=== PATIENT | male | born 1950 | race African-American/Black ===

== ENCOUNTER 2016-11-30 08:52 | Inpatient (IN) | payer OTHER ==
[~2016-11-30] VITALS: Ht 175.3 cm; Wt 73.0 kg
[2016-11-30] MEDS ORDERED: UNOBMED (09:12)
[2016-11-30 09:18] VITALS: BP 178/105
[2016-11-30] MEDS ORDERED: Solu-MEDROL 125mg Inj IVP ONE (09:45)
[2016-11-30] MEDS ORDERED: Azithromycin 500 MG in NS 275 ML IV ONE (09:45)
[2016-11-30] MEDS: Albuterol ud Inhalation HHN SCH ×3 (09:50→10:13)
[2016-11-30] MEDS: Ipratropium 0.02% Inh Soln 2.5ml UD HHN SCH ×3 (09:50→10:13)
--- NOTE | 2016-11-30 10:02 | Emergency Room Report ---
History of Present Illness General Chief Complaint: Upper Respiratory Illness Source: Patient Present Illness HPI 66 YO M + smoker with 2-3 days productive cough, SOB, chest tightness, myalgias. Denies known history of COPD, asthma. Never been treated before. Denies history of CAD, CHF. Denies sick contacts, foreign travel. States used to be [facility] patient, now unaffiliated. Takes HTN meds, not sure the name. Allergies: Coded Allergies: No Known Allergies (Unverified , 11/30/16) Patient History Past Medical History: HTN Past Surgical History: none Pertinent Family History: none Social History: Reports: smoking Immunizations: UTD Reviewed Nursing Documentation: PMH: Agreed, PSxH: Agreed Nursing Documentation-PMH Past Medical History: No History, Except For Hx Hypertension: Yes Review of Systems All Other Systems: negative except mentioned in HPI Physical Exam Vital Signs Date Time Temp Pulse Resp B/P Pulse Ox O2 Delivery O2 Flow Rate FiO2 11/30/16 09:08 98.1 78 18 178/105 89 Room Air Sp02 EP Interpretation: reviewed, abnormal General Appearance: normal inspection, well appearing, alert, GCS 15, non-toxic , mild distress Head: normocephalic, atraumatic Eyes: bilateral eye EOMI, bilateral eye PERRL ENT: normal ENT inspection, hearing grossly normal, normal voice Neck: normal inspection, full range of motion, supple, no bony tend Respiratory: normal inspection, no retraction, no accessory muscle use, rhonchi , wheezing Cardiovascular #1: normal inspection Gastrointestinal: normal inspection, normal bowel sounds, non tender, soft, no guarding, no hernia Genitourinary: no CVA tenderness Musculoskeletal: normal inspection, back normal, normal range of motion, Gerald' s Sign negative Neurologic: normal inspection, alert, oriented x3, responsive, dairy management specialist III-XII nml as tested, motor strength/tone normal, speech normal Psychiatric: normal inspection, judgement/insight normal, mood/affect normal Skin: normal inspection, normal color, no rash Lymphatic: normal inspection Procedures Critical Care Time Critical Care Time 35 minutes CC time of 35 minutes for this 66YOM who p/w acute SOB. DDx includes COPD exacerbation, ACS, PNA, CHF, bronchitis/URI PMhx includes HTN, smoker Presents acute SOB warm, c/o intermittent 2-3days of progressive SOB Patient immediately placed on ekg monitor tech with rhytm strip and STAT EKG was obtained which showed no acute ischemia VS notable for hypoxia on RA. Afebrile Initial management indicated: CBC, CMP, troponin, BNP, CXR, nebs, steroids, empiric Abx for COPD Highly suspected: COPD exacerbation, +/- PNA Possible interventions - BIPAP, additional Abx. CC time included frequent re-exams, interpretation of labs, imaging, adjustment of Abx Critical care time of 35 minutes does not include reportable procedures. Medical Decision Making Medicare Attestation I Verena Rossi MD hereby attest that the medical record entry for date of service, 10/16/16 accurately reflects signatures/notations that I made in my capacity as MD when I treated/diagnosed the above listed Medicare beneficiary. I attest that this information is true, accurate and complete to the best of my knowledge. I understand that any falsification, omission, or concealment of material fact may subject me to administrative, civil, or criminal liability. This patient warrants hospital admission for extreme of age and has a condition that cannot be treated as outpatient. Diagnostic Impression: Primary Impression: Upper respiratory infection Qualified Codes: J06.9 - Acute upper respiratory infection, unspecified; B97.89 - Other viral agents as the cause of diseases classified elsewhere Additional Impressions: Hypoxia Wheezing NSTEMI (non-ST elevated myocardial infarction) Acute on chronic heart failure Qualified Codes: I50.9 - Heart failure, unspecified CKD (chronic kidney disease) Qualified Codes: N18.9 - Chronic kidney disease, unspecified ER Course 66 YO M with 2-3 days of URI symptoms, hypoxia on vitals, SOB. DDx includes COPD +/- PNA, CHF, CAD, URI PLAN: Cardiac, O2 monitor, labs, CXR, nebs, steroids, Empiric Azithrom likely Adm EKG Diagnostic Results Rate: normal, other - LVH Rhythm: NSR ST Segments: no acute changes ASA given to the pt in ED: No Rhythm Strip Diag. Results EP Interpretation: yes Rate: 82 Rhythm: NSR, no PVC's, no ectopy Chest X-Ray Diagnostic Results EP Interpretation: Yes Findings: no consolidation, no effusion, no pneumothorax, other - Pulm congestion Number of Views: 1 Reevaluation Time: 12:12 Last Vital Signs Date Time Temp Pulse Resp B/P Pulse Ox O2 Delivery O2 Flow Rate FiO2 11/30/16 09:19 78 18 Room Air 11/30/16 09:18 98.1 178/105 89 Status: improved Reevaluation Impression Labs: No leuks. H&H stable. Trop 0.4. BNP >[address] depression lateral leads with TWI CXR with CHF A: Acute on chronic CHF, NSTEMI, known CKD Additional records from [facility] show history of CHF, last EF 31-40%, dilated cardiomyopathy, PUD, HTN Patient was on ASA, lasix, Norvasc, Lopressor - ?compliance now Gave ASA, Plavix. Dr Osorio Cx for Cardiology/NSTEMI - recommended holding Lovenox to see previous ECG but upon request [facility] did not send previous ECG Disposition: ADMITTED INPATIENT Condition: Critical VERENA ROSSI M.D. Nov 30, 2016 10:02
[2016-11-30] MEDS ORDERED: Azithromycin Inj IV ONE (10:04)
[2016-11-30] MEDS ORDERED: NS 275 ML ONE (10:05)
[2016-11-30 10:16] LABS: BASOPHILS % (AUTO) 1.5 % (0.0-2.0); EOSINOPHILS % (AUTO) 0.9 % (0.0-3.0); LYMPHOCYTES % (AUTO) 10.7 % (20.0-45.0); MEAN CORPUSCULAR HEMOGLOBIN 32.8 PG (27.0-31.0); MEAN CORPUSCULAR HGB CONC 32.6 G/DL (32.0-36.0); MEAN CORPUSCULAR VOLUME 101 FL (80-99); MEAN PLATELET VOLUME 8.7 FL (6.5-10.1); MONOCYTES % (AUTO) 4.8 % (1.0-10.0); NEUTROPHILS % (AUTO) 82.1 % (45.0-75.0); PLATELET COUNT 220 K/UL (150-450); RED BLOOD COUNT 4.52 M/UL (4.70-6.10); RED CELL DISTRIBUTION WIDTH 12.3 % (11.6-14.8); WHITE BLOOD COUNT 7.5 K/UL (4.8-10.8)
[2016-11-30 10:28] LABS: ALANINE AMINOTRANSFERASE 21 U/L (3-41); ALBUMIN/GLOBULIN RATIO 1.3 (1.0-2.7); ANION GAP 17 (5-15); ASPARTATE AMINO TRANSFERASE 17 U/L (5-40); CARBON DIOXIDE 21 mEQ/L (20-30); CHLORIDE 97 mEQ/L (98-107); CREATININE 1.2 mg/dL (0.7-1.2); GLOMERULAR FILTRATION RATE > 60 mL/min (>60); HEMOLYSIS 14; POTASSIUM 3.9 mEQ/L (3.4-4.9); SODIUM 135 mEQ/L (135-145); TOTAL PROTEIN 7.4 g/dL (6.6-8.7)
[2016-11-30 10:29] LABS: TROPONIN I 0.43 ng/mL (<=0.30)
--- NOTE | 2016-11-30 10:30 | Diagnostic Imaging Report ---
Indication: Chest Pain Comparison: 12/01/09 A single view chest radiograph was obtained. Findings: Hazy vascular prominence and cardiomegaly are present. Bones are osteopenic. Impression: Congestive heart failure
[2016-11-30 10:38] LABS: CKMB 3.2 ng/mL (< 6.7)
[2016-11-30] MEDS ORDERED: Enoxaparin 80mg Inj SUBQ ONE (10:45)
[2016-11-30] MEDS ORDERED: GABAPENTIN600 MG ORAL (10:49)
[2016-11-30] MEDS ORDERED: PANTOPRAZOLE SO40 MG ORAL (10:49)
[2016-11-30] MEDS ORDERED: HYDROXYZINE HCL10 M1 PO (10:49)
[2016-11-30] MEDS ORDERED: VENTOLIN HFA18 GM INH (10:49)
[2016-11-30] MEDS ORDERED: ZYRTEC10 MG ORAL (10:49)
[2016-11-30] MEDS ORDERED: PROCHLORPERAZINE5 MG ORAL (10:49)
[2016-11-30] MEDS ORDERED: CARAFATE1 G1 ORAL (10:49)
[2016-11-30] MEDS ORDERED: ASPIR 8181 MG ORAL (10:49)
[2016-11-30 11:13] VITALS: BP 171/101
[2016-11-30 13:00] VITALS: BP 162/100
[2016-11-30] MEDS ORDERED: DuoNeb 0.5-3(2.5)mg/3ml neb HHN PRN (15:00)
[2016-11-30] MEDS ORDERED: Miralax 17gm pkt ORAL PRN (15:00)
--- NOTE | 2016-11-30 15:03 | History and Physical ---
History of Present Illness General Date patient seen: Nov 30, 2016 Reason for Hospitalization: Upper Respiratory Illness Present Illness HPI 66 year old male with hx of cardiomyopathy, COPD, smoker presented with CC of productive cough, SOB, chest tightness, myalgias. Pt was diagnosed to have acute purulent bronchtitis with decompensation of systolic heart failure and admitted to med/surg. Allergies: Coded Allergies: No Known Allergies (Unverified , 11/30/16) Medication History Miscellaneous Medications Unable to Obtain Medications (Unable To Obtain Meds), (Reported) Discontinued Medications Albuterol Sulfate (Ventolin Hfa), 1 PUFF INH EVERY 6 HOURS, (Reported) Discontinued Reason: Pt stopped taking med Aspirin* (Aspir 81*), 81 MG ORAL DAILY, (Reported) Discontinued Reason: Pt stopped taking med Cetirizine Hcl* (Zyrtec*), 10 MG ORAL DAILY, (Reported) Discontinued Reason: Pt stopped taking med Gabapentin* (Gabapentin*), 600 MG ORAL THREE TIMES A DAY, (Reported) Discontinued Reason: Pt stopped taking med Hydroxyzine Hcl (Hydroxyzine Hcl), 10 MG PO, (Reported) Discontinued Reason: Pt stopped taking med Pantoprazole* (Pantoprazole*), 40 MG ORAL DAILY, (Reported) Discontinued Reason: Pt stopped taking med Prochlorperazine Maleate* (Compazine*), 5 MG ORAL Q6H, (Reported) Discontinued Reason: Pt stopped taking med Sucralfate* (Carafate*), 1 GM ORAL FOUR TIMES A DAY, (Reported) Discontinued Reason: Pt stopped taking med Patient History Healthcare decision maker Resuscitation status Advanced Directive on File Past Medical/Surgical History Past Medical/Surgical History: (1) Acute on chronic heart failure (2) Hypoxia (3) CKD (chronic kidney disease) (4) Upper respiratory infection Review of Systems All Other Systems: negative except mentioned in HPI Physical Exam Lines, tubes and drains: peripheral, PICC HEENT: normocephalic, atraumatic Neck: non-tender Respiratory/Chest: chest wall non-tender, normal breath sounds Cardiovascular/Chest: normal peripheral pulses, regular rhythm Abdomen: normal bowel sounds Last 24 Hour Vital Signs Date Time Temp Pulse Resp B/P Pulse Ox O2 Delivery O2 Flow Rate FiO2 11/30/16 13:25 81 22 172/106 98 Nasal Cannula 11/30/16 13:00 98.5 84 19 162/100 96 Nasal Cannula 3.0 11/30/16 11:13 98.1 91 18 171/101 91 Room Air 11/30/16 10:30 80 22 94 Nasal Cannula 3.0 32 11/30/16 09:50 21 11/30/16 09:50 80 20 Room Air 21 11/30/16 09:50 80 20 89 Room Air 21 11/30/16 09:19 78 18 Room Air 11/30/16 09:18 98.1 18 178/105 89 Room Air 11/30/16 09:08 98.1 78 18 178/105 89 Room Air Laboratory Tests Test 11/30/16 09:50 White Blood Count 7.5 K/UL (4.8-10.8) Red Blood Count 4.52 M/UL (4.70-6.10) L Hemoglobin 14.9 G/DL (14.2-18.0) Hematocrit 45.5 % (42.0-52.0) Mean Corpuscular Volume 101 FL (80-99) H Mean Corpuscular Hemoglobin 32.8 PG (27.0-31.0) H Mean Corpuscular Hemoglobin Concent 32.6 G/DL (32.0-36.0) Red Cell Distribution Width 12.3 % (11.6-14.8) Platelet Count 220 K/UL (150-450) Mean Platelet Volume 8.7 FL (6.5-10.1) Neutrophils (%) (Auto) 82.1 % (45.0-75.0) H Lymphocytes (%) (Auto) 10.7 % (20.0-45.0) L Monocytes (%) (Auto) 4.8 % (1.0-10.0) Eosinophils (%) (Auto) 0.9 % (0.0-3.0) Basophils (%) (Auto) 1.5 % (0.0-2.0) Sodium Level 135 mEQ/L (135-145) Potassium Level 3.9 mEQ/L (3.4-4.9) Chloride Level 97 mEQ/L (98-107) L Carbon Dioxide Level 21 mEQ/L (20-30) Anion Gap 17 (5-15) H Blood Urea Nitrogen 10 mg/dL (7-23) Creatinine 1.2 mg/dL (0.7-1.2) Estimat Glomerular Filtration Rate > 60 mL/min (>60) Glucose Level 118 mg/dL (74-106) H Calcium Level 9.0 mg/dL (8.6-10.2) Total Bilirubin 0.6 mg/dL (0.0-1.2) Aspartate Amino Transf (AST/SGOT) 17 U/L (5-40) Alanine Aminotransferase (ALT/SGPT) 21 U/L (3-41) Alkaline Phosphatase 91 U/L (40-129) Total Creatine Kinase 109 U/L (38-174) Creatine Kinase MB 3.2 ng/mL (< 6.7) Creatine Kinase MB Relative Index 2.9 Troponin I 0.43 ng/mL (<=0.30) *H Pro-B-Type Natriuretic Peptide 7399 pg/mL (0-125) H Total Protein 7.4 g/dL (6.6-8.7) Albumin 4.2 g/dL (3.5-5.2) Globulin 3.2 g/dL Albumin/Globulin Ratio 1.3 (1.0-2.7) Height (Feet): 5 Height (Inches): 9.00 Weight (Pounds): 161 Assessment/Plan Problem List: (1) Acute on chronic heart failure ICD Codes: I50.9 - Heart failure, unspecified SNOMED: 684324323 Qualifiers: Qualified Codes: I50.9 - Heart failure, unspecified (2) Upper respiratory infection ICD Codes: J06.9 - Acute upper respiratory infection, unspecified SNOMED: [id number] Qualifiers: Qualified Codes: J06.9 - Acute upper respiratory infection, unspecified; B97.89 - Other viral agents as the cause of diseases classified elsewhere (3) Hypoxia ICD Codes: R09.02 - Hypoxemia SNOMED: 388981490, 81921546 Assessment/Plan IV steroids iV antibiotics chest PT check sputum MARLON SUTHERLAND Nov 30, 2016 15:02
[2016-11-30 16:00] VITALS: BP 161/104
[2016-11-30 20:00] VITALS: BP 165/105
--- NOTE | 2016-11-30 20:03 | Cardiology Progress Note ---
Assessment/Plan Assessment/Plan [id number] acute on chronic systolic heart failure medication non compliance htn poorly controlled abn trop nstemi vas renal insuf related renal insuf diuretic afterload reduction ecotrin serial enzye and ekg dependign on his labs may need further cv testing Objective Last 24 Hour Vital Signs Date Time Temp Pulse Resp B/P Pulse Ox O2 Delivery O2 Flow Rate FiO2 11/30/16 19:43 85 20 Room Air 21 11/30/16 16:00 97.6 82 19 161/104 Nasal Cannula 2.0 89 11/30/16 16:00 88 11/30/16 13:25 81 22 172/106 98 Nasal Cannula 11/30/16 13:00 98.5 84 19 162/100 96 Nasal Cannula 3.0 11/30/16 11:13 98.1 91 18 171/101 91 Room Air 11/30/16 10:30 80 22 94 Nasal Cannula 3.0 32 11/30/16 09:50 21 11/30/16 09:50 80 20 Room Air 21 11/30/16 09:50 80 20 89 Room Air 21 11/30/16 09:19 78 18 Room Air 11/30/16 09:18 98.1 18 178/105 89 Room Air 11/30/16 09:08 98.1 78 18 178/105 89 Room Air Laboratory Tests Test 11/30/16 09:50 11/30/16 19:00 White Blood Count 7.5 K/UL (4.8-10.8) Red Blood Count 4.52 M/UL (4.70-6.10) L Hemoglobin 14.9 G/DL (14.2-18.0) Hematocrit 45.5 % (42.0-52.0) Mean Corpuscular Volume 101 FL (80-99) H Mean Corpuscular Hemoglobin 32.8 PG (27.0-31.0) H Mean Corpuscular Hemoglobin Concent 32.6 G/DL (32.0-36.0) Red Cell Distribution Width 12.3 % (11.6-14.8) Platelet Count 220 K/UL (150-450) Mean Platelet Volume 8.7 FL (6.5-10.1) Neutrophils (%) (Auto) 82.1 % (45.0-75.0) H Lymphocytes (%) (Auto) 10.7 % (20.0-45.0) L Monocytes (%) (Auto) 4.8 % (1.0-10.0) Eosinophils (%) (Auto) 0.9 % (0.0-3.0) Basophils (%) (Auto) 1.5 % (0.0-2.0) Sodium Level 135 mEQ/L (135-145) Potassium Level 3.9 mEQ/L (3.4-4.9) Chloride Level 97 mEQ/L (98-107) L Carbon Dioxide Level 21 mEQ/L (20-30) Anion Gap 17 (5-15) H Blood Urea Nitrogen 10 mg/dL (7-23) Creatinine 1.2 mg/dL (0.7-1.2) Estimat Glomerular Filtration Rate > 60 mL/min (>60) Glucose Level 118 mg/dL (74-106) H Calcium Level 9.0 mg/dL (8.6-10.2) Total Bilirubin 0.6 mg/dL (0.0-1.2) Aspartate Amino Transf (AST/SGOT) 17 U/L (5-40) Alanine Aminotransferase (ALT/SGPT) 21 U/L (3-41) Alkaline Phosphatase 91 U/L (40-129) Total Creatine Kinase 109 U/L (38-174) Creatine Kinase MB 3.2 ng/mL (< 6.7) Creatine Kinase MB Relative Index 2.9 Troponin I 0.43 ng/mL (<=0.30) *H Pending Pro-B-Type Natriuretic Peptide 7399 pg/mL (0-125) H Total Protein 7.4 g/dL (6.6-8.7) Albumin 4.2 g/dL (3.5-5.2) Globulin 3.2 g/dL Albumin/Globulin Ratio 1.3 (1.0-2.7) KAITLYNN CHANG Nov 30, 2016 20:03
[2016-11-30 20:17] LABS: TROPONIN I 0.32 ng/mL (<=0.30)
[2016-11-30] MEDS: Lisinopril 20mg tab ORAL SCH (21:57)
[2016-11-30] MEDS: Heparin 5000 units/ml inj SUBQ SCH (21:58)
[2016-12-01 00:31] VITALS: BP 165/104
--- NOTE | 2016-12-01 01:07 | Consultation ---
DATE OF CONSULTATION: 11/30/2016 REFERRING PHYSICIAN: Lou Elliott M.D. REASON FOR REFERRAL: Congestive heart failure. HISTORY OF PRESENT ILLNESS: This is a 66-year-old gentleman with apparently history of cardiomyopathy and congestive heart failure according to the emergency room physician who obtained information from [facility]. The patient was with [facility] until approximately one year ago when he left [facility]. He was without insurance for approximately one year. He did have enough refills of his diuretics that he was taking for some time, but over the past three months, he has not been taking any diuretics and over the past few days, he started getting more short of breath and eventually waking up at night because of shortness of breath. He uses two pillows at night and dyspnea on exertion. No pain, pressure, tightness, heaviness, or discomfort of any kind in the chest with activity. He has been active. He has been working. He just started with a new insurance company, but has not seen a physician yet. PAST MEDICAL HISTORY: Positive for history of enlarged heart and as mentioned, the emergency room physician obtained information from [facility] indicating that the patient has had congestive heart failure; cardiomyopathy, dilated in origin, plus who have had ejection fraction between 31% to 40% according to those records. The patient does have history of hyperlipidemia. No history of heart attack or cancer or stroke or hepatitis or tuberculosis or asthma or emphysema. No ulcers. No kidney problems, liver problems, thyroid problems, anemia, or arthritis. SOCIAL HISTORY: He does smoke and he does drink alcoholic beverages. No drug use. He still works. REVIEW OF SYSTEMS: Gastrointestinal: He denies. Genitourinary: He denies. Pulmonary: He denies. Constitutional: He denies. Neurological: He denies. Cardiovascular: As mentioned in the HPI. MEDICATIONS: At this time are none, although he used to be on some diuretics as well as some cholesterol-lowering medication. PHYSICAL EXAMINATION: GENERAL: An elderly gentleman, in no respiratory distress. He feels significantly better since the time came to the hospital, he says. NECK: Supple. There is some jugular venous distention. LUNGS: Decreased breath sounds on the right base and crackles noted approximately jail up on the left side. CARDIAC: Regular rate and rhythm. No heaves or thrills noted. He does have holosystolic regurgitant murmur. ABDOMEN: Soft and nontender. Positive bowel sounds. EXTREMITIES: There is no clubbing, cyanosis, or edema. NEUROLOGIC: He is awake, alert, responsive, in no apparent respiratory distress. VITAL SIGNS: His blood pressure since admission was 178/105 down to 161/104 at the present time. His heart rates in the 80s and temperature 97.6. LABORATORY DATA: His sodium 135, potassium 3.9, chloride 97, bicarbonate 21, BUN of 10, creatinine 1.2, and glucose of 118. His calcium was 9.0. Troponin was 0.43. ProBNP of 7399. His albumin of 4.2. His chest x-ray shows significant cardiomegaly and the picture is consistent with congestive heart failure. ASSESSMENT AND PLAN: 1. Congestive heart failure, acute systolic on chronic systolic. 2. Hypertension, poorly controlled. 3. Medication noncompliance. 4. Reportedly no chronic kidney disease. 5. Abnormal cardiac enzymes. Lma-NE-vyrtleqch myocardial infarction versus secondary to renal insufficiency. 6. Renal insufficiency, mild degree. Dr. Elliott, this patient was seen in cardiac consultation. He has not been taking this medication for number of months and his shortness of breath has been gradual in onset. He has no chest pains or chest discomfort of any kind. He does have an abnormal electrocardiogram that is most consistent with posterior left ventricular hypertrophy with T-wave inversion asymmetric in I, aVL, V5, and V6 and his signs and symptoms and findings are consistent with congestive heart failure, needs better blood pressure control as well as diuretics for congestive heart failure and afterload reduction. His cardiac enzymes should be repeated. An echocardiogram will be ordered to evaluate systolic function and further recommendations based on the results of the above findings. Plan Dr. Elliott, thank you for allowing me to participate in the care of this patient. Juan Olivas M.D. DR: GAURANG JOB#: [id number] CC:
[2016-12-01 04:18] VITALS: BP 148/103
[2016-12-01 07:38] LABS: BASOPHILS % (AUTO) 0.5 % (0.0-2.0); LYMPHOCYTES % (AUTO) 12.1 % (20.0-45.0); MEAN CORPUSCULAR HGB CONC 33.1 G/DL (32.0-36.0); MEAN CORPUSCULAR VOLUME 100 FL (80-99); MEAN PLATELET VOLUME 8.9 FL (6.5-10.1); NEUTROPHILS % (AUTO) 81.3 % (45.0-75.0); PLATELET COUNT 185 K/UL (150-450); RED BLOOD COUNT 4.11 M/UL (4.70-6.10); RED CELL DISTRIBUTION WIDTH 11.9 % (11.6-14.8); WHITE BLOOD COUNT 6.5 K/UL (4.8-10.8)
[2016-12-01 08:01] LABS: ANION GAP 16 (5-15); CALCIUM 8.9 mg/dL (8.6-10.2); CARBON DIOXIDE 25 mEQ/L (20-30); CHLORIDE 99 mEQ/L (98-107); CREATININE 1.2 mg/dL (0.7-1.2); GLOMERULAR FILTRATION RATE > 60 mL/min (>60); HEMOLYSIS 11; POTASSIUM 3.8 mEQ/L (3.4-4.9); SODIUM 140 mEQ/L (135-145)
[2016-12-01 08:06] LABS: CHOLESTEROL/HDL RATIO 5.7 (3.3-4.4); TROPONIN I < 0.30 ng/mL (<=0.30)
[2016-12-01 08:10] LABS: THYROID STIMULATING HORMONE 1.47 uIU/mL (0.300-4.500)
[2016-12-01 08:38] VITALS: BP 149/97
[2016-12-01] MEDS: Lisinopril 20mg tab ORAL SCH (08:39)
[2016-12-01] MEDS: Heparin 5000 units/ml inj SUBQ SCH (08:41)
[2016-12-01] MEDS ORDERED: Aspirin EC 81mg tab ORAL SCH (09:00)
[2016-12-01 11:59] VITALS: BP 154/98
--- NOTE | 2016-12-01 13:59 | Diagnostic Imaging Report ---
Indications: DYSPNEA Technique: Portable AP chest Findings: Comparison: 11/30/16 Bilateral interstitial infiltrates, left upper lobe airspace consolidation have decreased. Indistinctness of left costophrenic angle, cardiomegaly persists. No new abnormality demonstrated. IMPRESSION: Decrease in bilateral congestive changes from one day prior
[2016-12-01] MEDS ORDERED: NS 275ml ONE (15:29)
[2016-12-01] MEDS ORDERED: Tubing IV Secondary IV ONE (15:29)
--- NOTE | 2016-12-01 17:53 | Cardiology Report ---
APPROVED REPORT EXAM: Two-dimensional and M-mode echocardiogram with Doppler and color Doppler. INDICATION Left Ventricular Function M-Mode DIMENSIONS IVSd1.3 (0.7-1.1cm)Left Atrium (MM)5.1 (1.6-4.0cm) LVDd4.8 (3.5-5.6cm)Aortic Root2.8 (2.0-3.7cm) PWd1.1 (0.7-1.1cm)Aortic Cusp Exc.1.7 (1.5-2.0cm) LVDs3.3 (2.5-4.0cm) PWs2.1 cm Normal left ventricular systolic function and wall motion. Left ventricular ejection fraction estimated to be 50%. No evidence of ventricular hypertrophy. No evidence of pericardial effusion. Mild left ventricular enlargement. Mild left atrial enlargement. Right cardiac chamber sizes are within normal limits. Mild focal aortic valve sclerosis with adequate cusp excursion. Mildly thickened mitral valve leaflets with normal excursion. Mild mitral annulus and aortic root calcification. Pulmonic valve not well visualized. Normal tricuspid valve structure. IVC dilated at 1.7cm with physiologic collapse. A color flow and spectral Doppler study was performed and revealed: Mild aortic regurgitation. Mild mitral regurgitation. Mitral inflow indicate normal left ventricular diastolic function. Trace tricuspid regurgitation. Tricuspid systolic velocities suggests peak right ventricular systolic pressure of 15 mmHg. No pulmonic regurgitation.
--- NOTE | 2016-12-01 17:58 | Cardiology Report ---
APPROVED REPORT EKG Measurement Heart [id number] IN 134P72 [id number] [id number] Normal sinus rhythm Right atrial enlargement Left ventricular hypertrophy with repolarization abnormality Prolonged QT Abnormal ECG
--- NOTE | 2016-12-01 18:11 | Cardiology Report ---
APPROVED REPORT EKG Measurement Heart [id number] CT 144P52 [id number] Normal sinus rhythm Right atrial enlargement Left ventricular hypertrophy with repolarization abnormality Abnormal ECG
--- NOTE | 2016-12-01 20:38 | Discharge Summary ---
Discharge Summary Hospital Course Date of Admission Nov 30, 2016 at 10:50 Date of Discharge Dec 01, 2016 at 15:30 Admitting Diagnosis DYSPNEA. COPD EXACEBRATION, n-stemi HPI Donnell Belcher is a 66 year old male who was admitted on Nov 30, 2016 at 10:50 for Chronic Obstructive Pulmonary Disease Hospital Course [id number] Discharge Discharge Disposition Patient was discharged to Acute Care Facility(02) Discharge Diagnoses: Taylor Bateman NP Dec 01, 2016 20:38
--- NOTE | 2016-12-02 17:06 | Diagnostic Imaging Report ---
APPROVED REPORT CPT Code: 33228 Present Symptoms Shortness of breath BILATERAL: Imaging reveals a patent deep venous system bilaterally. There is no evidence of thrombus within the femoral, popliteal or tibial segments. The greater saphenous veins are also within normal limits. Doppler indicates normal spontaneous flow within these segments.
--- NOTE | 2016-12-02 17:08 | Discharge Summary 2 SIG ---
DATE OF ADMISSION: 11/30/2016 DATE OF DISCHARGE: 12/01/2016 SHEET METAL FABRICATOR: Juan Olivas M.D. BRIEF HOSPITAL COURSE: The patient is a 66-year-old male with history of cardiomyopathy, chronic obstructive pulmonary disease, and smoker who presented with chief complaint of productive cough, shortness of breath, chest tightness, and myalgia. The patient was diagnosed to have acute purulent bronchitis with decompensation of systolic heart failure. He was given IV steroids and respiratory treatments. Dr. Olivas was consulted. The patient had [facility] approximately a year ago. He lost his insurance for approximately one year and did not have enough refills for his diuretics. Over the past three months, he has not been taking any diuretics and few days ago started getting more short of breath with waking up at night. He uses two pillows to sleep and has dyspnea on exertion. His proBNP was 7399. Chest x-ray showed significant cardiomegaly consistent with congestive heart failure. He does have an abnormal electrocardiogram, most consistent with posterior left ventricular hypertrophy with T-wave inversions asymmetric in I, aVL, V5, and V6. Signs and symptoms were consistent with congestive heart failure. He was given diuretics and congestive heart failure afterload reduction. The echocardiogram done showed ejection fraction 50%. He was eventually discharged to contracted facility, [facility]. FINAL DIAGNOSES: 1. Acute on chronic systolic congestive heart failure. 2. Poorly controlled hypertension. 3. Medication noncompliance. 4. Abnormal cardiac enzymes with non-ST elevated myocardial infarction secondary to renal insufficiency. 5. Upper respiratory infection. Lou Elliott M.D. I have been assigned to dictate discharge summary on this account and I was not involved in the patient's management. Taylor Bateman N.P. DR: KATHY JOB#: [id number] CC: IQRA
== END 2016-12-01 15:30 | disposition short-term general hospital (02) | DRG 280 ==
LOC: EMR 10:06 → EDBEDREQ 10:40 → 2E 10:50 → EDBEDREQ 12:30
DX: I21.4 Non-ST elevation (NSTEMI) myocardial infarction (principal); I50.23 Acute on chronic systolic (congestive) heart failure; J44.0 Chronic obstructive pulmonary disease with (acute) lower respiratory infection; I10 Essential (primary) hypertension; Z91.14 Patient's other noncompliance with medication regimen; F17.200 Nicotine dependence, unspecified, uncomplicated; N28.9 Disorder of kidney and ureter, unspecified; R09.02 Hypoxemia; J20.9 Acute bronchitis, unspecified
CPT/HCPCS: 36415; 71010; 80048; 80053; 80061; 80069; 82550; 82553; 83880; 84443; 84484; 85025; 87040; 93005; 93306; 93970; 94640; 94664